=== PATIENT | female | born 1955 | race Caucasian/White ===

== ENCOUNTER 2023-05-27 05:48 | Emergency (ER) | payer MEDICARE, SELFPAY ==
--- NOTE | 2023-05-27 | ECG_ITS ---
Test Reason : palpitations Blood Pressure : / mmHG Vent. Rate : 087 BPM Atrial Rate : 087 BPM P-R Int : 110 ms QRS Dur : 082 ms QT Int : 366 ms P-R-T Axes : 079 031 049 degrees QTc Int : 440 ms Sinus rhythm with short CO RSR' or QR pattern in V1 suggests right ventricular conduction delay Nonspecific ST abnormality Abnormal ECG No previous ECGs available Referred By: Generic ED Physician Electronically Signed By:RODRIGO STARR MD
--- NOTE | ~2023-05-27 | XR_ITS ---
EXAMINATION: XR CHEST CLINICAL INFORMATION: Cough. COMPARISON: None available. TECHNIQUE: Frontal view of the chest was obtained. FINDINGS: No significant abnormality is noted involving the heart, lungs, mediastinum, bony thorax or soft tissues. XR/XR chest 1V IMPRESSION: Unremarkable examination.
[2023-05-27 05:54] VITALS: BP 167/88; PULSE 92; RESP 16; TEMP 38.1; O2SAT 94; BMI 22.5
[2023-05-27 06:30] VITALS: BP 150/74; PULSE 83; RESP 22; TEMP 38.2; O2SAT 96
[2023-05-27 06:35] VITALS: BP 150/74; PULSE 83; RESP 13; O2SAT 96
--- NOTE | 2023-05-27 06:49 | MHC.EDTECH ---
Patient came in from triage, changed into hospital attire, placed on the residential monitor. EKG and vitals completed.Temp is 100.8 RN Dana aware. Labs and cultures and a Sars were obtained and sent to lab.patient is in the bathroom at this time to give a urine sample
[2023-05-27 06:53] LABS: Basophils Percent Auto 0.8 % (0-2); Eosinophils Percent Auto 0.8 % (0-4); Hematocrit 39.3 % (37.0-47.0); Hemoglobin 12.9 g/dl (12.0-16.0); Imm Gran Abs Auto 0.02 X10*3/uL (0.00-0.03); Imm Gran Pct Auto 0.4 % (0.0-0.4); Lymphocytes Absolute Auto 0.3 X10*3/uL (1.2-4.9); Lymphocytes Percent Auto 6.3 % (20-40); MANUAL DIFF FLAG NO; Mean Corpuscular HGB Conc 32.8 g/dl (31.0-35.0); Mean Corpuscular Hemoglobin 29.9 pg (27.0-33.0); Mean Corpuscular Volume 91.2 fL (80.0-98.0); Mean Platelet Volume 10.4 fL (9.4-12.3); Monocytes Absolute Auto 0.8 X10*3/uL (0.1-1.2); Monocytes Percent Auto 14.9 % (2-11); Neutrophils Absolute Auto 3.9 x10*3/uL (2.0-8.3); Neutrophils Percent Auto 76.8 % (45-73); Platelet Count 201 X10*3/uL (160-400); Red Blood Count 4.31 X10*6/uL (4.20-5.50); White Blood Count 5.1 X10*3/uL (4.8-10.8)
[2023-05-27 07:05] LABS: Lactic Acid 0.8 mmol/L (0.5-2.0)
[2023-05-27 07:08] LABS: Anion Gap 11 (12-20); Blood Urea Nitrogen 13 mg/dL (9-16); Carbon Dioxide 25 mmol/L (22-29); Chloride 106 mmol/L (96-108); Creatinine Clr Calc Pharmacy 69.4; Estimated Glomerular Filt Rate > 60; Glucose Random 114 mg/dL (60-115); Potassium 3.9 mmol/L (3.3-5.1); Sodium 138 mmol/L (135-145)
[2023-05-27 07:11] VITALS: BP 144/74; PULSE 83; RESP 20
--- NOTE | 2023-05-27 07:12 | PC.NURSE ---
Patient alert and oriented, reports feeling weak ad tired. Patient reports did not take BP med this am. BP 144/ 74. NSR on monitor
[2023-05-27 07:14] LABS: Appearance Urine Clear; Color Urine Yellow; Glucose Urine UA Negative (Negative); Leukocyte Esterase Urine Small (1+) (Negative); Nitrite Urine Negative (Negative); PH 5.5 (5.0-9.0); UMIC TRIGGER UACC YES; Urine Blood Small (1+) (Negative); Urine Ketones Negative (Negative); Urine Protein Negative (Neg-Trace)
[2023-05-27 07:16] LABS: Troponin-I High Sensitivity < 2.7 ng/L (<3.5-17.0)
--- NOTE | 2023-05-27 07:26 | ED_ITS ---
[facility] - General Adult General Chief complaint: Arrhythmia/Palpitations Stated complaint: Heart Palpitations, Fever Time Seen by Provider: 05/27/23 07:09 Source: patient and family Mode of arrival: ambulatory History of Present Illness HPI narrative: 68-year-old female with history of hypertension presents with 2 days of coughing, nasal congestion, headache and states that last night she felt like she was having palpitations but denies any associated nausea, vomiting, abdominal discomfort or diarrhea and denies any urinary symptoms. Related Data Allergies Allergy/AdvReac Type Severity Reaction Status Date / Time Sulfa (Sulfonamide Allergy Swelling Verified 05/27/23 05:54 Antibiotics) Review of Systems 2 Review of Systems: Pertinent positives and negatives as stated in [facility] Past Medical History Source: nursing notes reviewed Social History Social History Alcohol intake: current Alcohol intake frequency: holidays/special occasions only Smoked in Last 30 Days: No Use of substances other than those prescribed or required for medical reasons: No Advance Directives: Yes Advance Directives Information Provided: No Advance Directives on File: No Physical Exam ED Vital Signs: Vital Signs - 24 hr 05/27/23 05:54 05/27/23 06:30 05/27/23 06:35 Temperature 100.6 F H 100.8 F H Pulse Rate 92 83 83 Respiratory Rate 16 22 H 13 Blood Pressure 167/88 H 150/74 H 150/74 H Pulse Oximetry 94 96 96 Oxygen Delivery Method Room Air Room Air Room Air 05/27/23 07:11 Temperature Pulse Rate 83 Respiratory Rate 20 Blood Pressure 144/74 H Pulse Oximetry Oxygen Delivery Method BMI result Body Mass Index 22.5 VITAL SIGNS: Reviewed. GENERAL: Well developed, well nourished, in no acute distress. HEAD: Normocephalic/atraumatic EYES: PERRLA, EOMI EARS: Ext canals without abnormality, TMs non-bulging and non-erythematous NOSE: Nares patent bilateral OROPHARYNX: no oral lesions noted, posterior pharynx clear and non-erythematous without noted tonsillar enlargement/erythema/exudates NECK: Supple, no adenopathy LUNGS: Normal breath sounds. No adventitious sounds or accessory muscle use. SpO2<96> CARDIOVASCULAR: Regular rate and rhythm without noted murmurs, no JVD or lower extremity edema. ABDOMEN: Soft, non-tender, non-distended with bowel sounds. MUSCULOSKELETAL: No tenderness, deformities, or effusions noted on gross inspection. EXTREMITIES: No cyanosis, clubbing or edema. SKIN: Inspection of the skin reveals no rashes NEUROLOGIC: Alert and oriented x 4. Strength and sensation to light touch were grossly intact x 4. Medications Administered Discontinued Medications Generic Name Dose Route Start Last Admin Trade Name Ozzyq PRN Reason Stop Dose Admin Acetaminophen 975 mg 05/27/23 07:27 05/27/23 07:32 Acetaminophen 325 Mg Tablet PO 05/27/23 07:28 975 mg ONCE ONE Administration Ibuprofen 400 mg 05/27/23 07:27 05/27/23 07:32 Ibuprofen 400 Mg Tablet PO 05/27/23 07:28 400 mg ONCE ONE Administration Medical Decision Making Medical Decision Making [facility] Narrative: 68-year-old female with history and clinical presentation, DDX: Viral syndrome, chronic cough, irregular rhythm, CHF, doubt pneumonia I reviewed all investigations and hematologic indices are grossly within normal limits as there is no leukocytosis, anemia, or thrombocytopenia. Chemistry indices are grossly within normal limits as there is no demonstrated MERISSA her electrolyte abnormalities and high sensitivity troponin is undetectable. Urinalysis does not demonstrate a urinary tract infection, and is a dirty sample. Chest x-ray does not demonstrate an infiltrate or venous congestion and otherwise my interpretation is in agreement with radiology's impression. Viral testing is positive for COVID and patient was informed. EKG does not demonstrate any irregular rhythm and is not tachycardic. Suspect that these symptoms were secondary to elevated temperature. Patient received combination analgesics and was discharged home with instructions to isolate. Differential Diagnosis Differential Diagnoses: The differential diagnosis associated with the presentation includes Please see the discussion above Admission/Observation Consideration of admission/observation: Escalation of care including admission/observation considered Please see the discussion above Lab Data [facility] Lab Attestation statement: I reviewed the patient's lab results. Please see the discussion above 05/27/23 06:40 05/27/23 06:40 Labs: Lab Results 05/27/23 05/27/23 Range/Units 06:40 07:07 WBC 5.1 (4.8-10.8) X10*3/uL RBC 4.31 (4.20-5.50) X10*6/uL Hgb 12.9 (12.0-16.0) g/dl Hct 39.3 (37.0-47.0) % MCV 91.2 (80.0-98.0) fL MCH 29.9 (27.0-33.0) pg MCHC 32.8 (31.0-35.0) g/dl RDW 13.0 (11.0-16.0) % Plt Count 201 (160-400) X10*3/uL MPV 10.4 (9.4-12.3) fL Immature Gran % (Auto) 0.4 (0.0-0.4) % Neut % (Auto) 76.8 H (45-73) % Lymph % (Auto) 6.3 L (20-40) % [place] % (Auto) 14.9 H (2-11) % Eos % (Auto) 0.8 (0-4) % Baso % (Auto) 0.8 (0-2) % Lymph # (Auto) 0.3 L (1.2-4.9) X10*3/uL [place] # (Auto) 0.8 (0.1-1.2) X10*3/uL Eos # (Auto) 0.0 (0.0-0.4) X10*3/uL Baso # (Auto) 0.0 (0.0-0.2) X10*3/uL Abs Immat Gran (auto) 0.02 (0.00-0.03) X10*3/uL Absolute Neuts (auto) 3.9 (2.0-8.3) x10*3/uL Absolute Nucleated RBC 0.000 (0.0-0.012) X10*3/uL Nucleated RBC % (auto) 0.0 (0.0-0.2) /100WBC Sodium 138 (135-145) mmol/L Potassium 3.9 (3.3-5.1) mmol/L Chloride 106 (96-108) mmol/L Carbon Dioxide 25 (22-29) mmol/L Anion Gap 11 L (12-20) BUN 13 (9-16) mg/dL Creatinine 0.76 (0.5-1.4) mg/dL Estim Creat Clear Calc 69.4 Estimated GFR > 60 Random Glucose 114 (60-115) mg/dL Lactic Acid 0.8 (0.5-2.0) mmol/L Calcium 9.0 (8.4-10.2) mg/dL Troponin I High Sens < 2.7 (<3.5-17.0) ng/L Urine Color Yellow Urine Appearance Clear Urine pH 5.5 (5.0-9.0) Ur Specific [place] 1.020 (1.005-1.025) Urine Protein Negative (Neg-Trace) mg/dL Urine Glucose (UA) Negative (Negative) mg/dL Urine Ketones Negative (Negative) mg/dL Urine Blood Small (1+) H (Negative) Urine Nitrite Negative (Negative) Ur Leukocyte Esterase Small (1+) H (Negative) Urine RBC 3-5 H (0-2) /HPF Urine WBC 6-10 H (0-5) /HPF Ur Squamous Epith Cells 11-20 (0-2) /HPF Urine Bacteria Trace (None Seen) Hyaline Casts 0-2 (0-2) /LPF Influenza Type A (PCR) NEGATIVE (Negative) Influenza Type B (PCR) NEGATIVE (Negative) RSV RNA Qual (PCR) NEGATIVE (Negative) SARS-CoV-2 RNA (RT-PCR) POSITIVE A (Negative) Independent Interpretation I performed an independent interpretation of an: EKG Interpretation: Sinus rhythm, HR-87, no STEMI, CA/QRS/QTC is within normal limits. Radiology Impression Discussion of test interpretation with radiology: I have reviewed the radiologist's reading. Radiologist Impression: Please see the discussion above Chronic Conditions Patient?s care impacted by: Hypertension Discharge Plan Discharge Clinical Impression: Viral syndrome, Lab test positive for detection of COVID-19 virus Patient Disposition: Home, Self-Care Instructions: Viral Syndrome (ED), COVID-19 (Coronavirus Disease 2019) (ED) Additional Instructions: 1. Recommend [id number] Tylenol/ibuprofen as needed for body aches, headaches, temperatures greater than 100.4. Continue to drink plenty of water. 2. You must isolate for the next 5 days. You will then need to follow all state/Federal/employer guidelines as they of apply. 3. Do not hesitate to return to the emergency room if you have any worsening or new symptoms. Referrals: Elle Hodgson MD [Primary Care Provider] -
[2023-05-27 07:30] LABS: Influenza A PCR NEGATIVE (Negative); Influenza B PCR NEGATIVE (Negative); Resp Syncy Virus RNA Qual PCR NEGATIVE (Negative); SARS COV2 PCR INHOUSE POSITIVE (Negative)
[2023-05-27] MEDS: Acetaminophen 325 MG TABLET 975 MG PO (07:32)
[2023-05-27] MEDS: Ibuprofen 400 MG TABLET PO (07:32)
[2023-05-27 07:33] LABS: Bacteria Urine Trace (None Seen); Hyaline Casts Urine 0-2 /LPF (0-2); UACC Culture Trigger YES
--- NOTE | 2023-05-27 08:09 | PC.NURSE ---
Discharge plan reviewed with patient who verbalized understanding
== END 2023-05-27 08:09 | disposition home or self-care (01) ==
PROVIDERS: Emergency Provider Student in an Organized Health Care Education/Training Program; PCP Internal Medicine
DX: U07.1 COVID-19 (principal); B34.9 Viral infection, unspecified; R50.9 Fever, unspecified
CPT/HCPCS: 0241U; 36415; 71045; 80048; 81001; 83605; 84484; 85025; 87040; 87086; 93005; 99283; 99285